=== PATIENT | female | born 1960 | race Caucasian/White ===

== ENCOUNTER 2018-12-21 14:26 | Emergency (ER) | payer OTHER ==
[2018-12-21] MEDS: KETOROLAC 30 MG INJ IM (17:23)
== END 2018-12-21 19:37 | disposition home or self-care (01) ==
LOC: FTE 14:26
DX: S39.012A Strain of muscle, fascia and tendon of lower back, initial encounter (principal); R40.2142 Coma scale, eyes open, spontaneous, at arrival to emergency department; R40.2362 Coma scale, best motor response, obeys commands, at arrival to emergency department; R40.2252 Coma scale, best verbal response, oriented, at arrival to emergency department; S13.9XXA Sprain of joints and ligaments of unspecified parts of neck, initial encounter; V54 Occupant of pick-up truck or van injured in collision with heavy transport vehicle or bus
CPT/HCPCS: 72040; 72100; 96372; 99284-25